=== PATIENT | male | born 1995 ===

== ENCOUNTER 2023-06-16 10:07 | Day surgery (SDC) | payer OTHER ==
[2023-06-09 09:10] LABS: URINE APPEARANCE Clear; URINE BILIRRUBIN Negative (NEGATIVE); URINE BLOOD Negative; URINE COLOR Yellow; URINE GLUCOSE Negative (NEGATIVE); URINE LEUKOCYTE Negative; URINE NITRATE Negative; URINE PROTEIN Negative (NEGATIVE)
[2023-06-09 09:14] LABS: URINE BACTERIA 42.8 uL (0.0-1933); URINE EPITHELIAL CELLS 2.1 uL (0.0-38.8); URINE WBC 3.5 uL (0.0-23.2)
[2023-06-09 09:17] LABS: HEMATOCRIT 45.1 % (39.0-48.0); HEMOGLOBIN 15.6 g/dL (13-16.00); MEAN CELL VOLUME 84.6 fL (80.0-100.00); MEAN CORPUSCULAR HEMOGLOBIN 29.3 pg (27.00-32.0); MEAN CORPUSCULAR HGB CONC 34.6 g/dl (32.0-36.0); PLATELET COUNT 297 K/uL (150-450); RED BLOOD COUNT 5.33 M/uL (4.00-6.00); RED CELL DISTRIBUTION WIDTH 13.5 % (11.5-14.5)
[2023-06-09 09:39] LABS: INR 1.08; PARTIAL THROMBOPLASTIN TIME 29.2 SECONDS (22.0-34.0); PROTHROMBIN TIME 11.3 SECONDS (9.0-11.5)
[2023-06-09 09:46] LABS: URINE RBC 0.1 uL (0.0-20.8)
[2023-06-09 09:52] LABS: ALBUMIN 4.1 gm/dL (3.4-5.0); CALCIUM 9.1 mg/dL (8.5-10.1); CREATININE SERUM 0.77 mg/dL (0.70-1.30); GFR 118.62; PHOSPHOROUS 3.1 mg/dL (2.5-4.9); POTASSIUM 4.61 mEq/L (3.5-5.1)
[~2023-06-16 10:07] MED LIST: LOMAIRA8 MG PO
[2023-06-16] MEDS ORDERED: CIPROFLOXACIN2.5 ML OTIC (17:31)
[2023-06-16] MEDS ORDERED: CEPHALEXIN500 M1 PO (17:31)
== END 2023-06-16 19:30 | disposition home or self-care (01) ==
LOC: CIR.AMB 10:07
PROVIDERS: ATTEND Otolaryngology Otology & Neurotology
DX: H80.22 Cochlear otosclerosis, left ear (principal); H90.A12 Conductive hearing loss, unilateral, left ear with restricted hearing on the contralateral side; Z20.822 Contact with and (suspected) exposure to COVID-19